=== PATIENT | male | born 1960 | race Caucasian/White ===

== ENCOUNTER 2022-08-19 14:03 | Emergency (ER) | payer SELFPAY ==
[~2022-08-19] VITALS: Ht 182.9 cm; Wt 82.0 kg
[2022-08-19 14:15] VITALS: BP 142/86
--- NOTE | 2022-08-19 14:22 | NUR ---
When confirming his pt stated, 58. Pt's ID states 58. "That one is fake. Someone at the [employer] made it for me."
[2022-08-19] MEDS ORDERED: CIPR7.5D EACH EAR (15:54)
[2022-08-19] MEDS ORDERED: AMOX-117 PO (15:54)
== END 2022-08-19 16:07 | disposition home or self-care (01) ==
LOC: ER 14:04
DX: H60.313 Diffuse otitis externa, bilateral (principal); H92.03 Otalgia, bilateral; Z79.2 Long term (current) use of antibiotics
CPT/HCPCS: 99283